=== PATIENT | female | born 1990 | race Caucasian/White ===

== ENCOUNTER 2022-12-02 23:21 | Emergency (ER) | payer SELFPAY ==
[~2022-12-02] VITALS: Ht 170.2 cm; Wt 66.7 kg
[2022-12-03] MEDS ORDERED: IBUP-2029 MT (03:13)
[2022-12-03] MEDS ORDERED: KETOROLAC 60MG/2ML VIAL IM ONE (03:30)
[2022-12-03 03:40] VITALS: BP 97/66
== END 2022-12-03 04:06 | disposition home or self-care (01) ==
LOC: ER 23:21
DX: M79.10 Myalgia, unspecified site (principal); R51.9 Headache, unspecified; Z20.822 Contact with and (suspected) exposure to COVID-19
CPT/HCPCS: 81025; 87426; 87804; 96372; 99283; C9803; J1885; Z7610